=== PATIENT | female | born 1985 | race Caucasian/White ===

== ENCOUNTER 2020-09-08 21:37 | Emergency (ER) | payer OTHER ==
[~2020-09-08] VITALS: Ht 157.5 cm; Wt 113.4 kg
[2020-09-08 21:50] VITALS: BP 149/87
--- NOTE | 2020-09-08 21:53 | NUR ---
TO LOBBY A/W BED AMBULATORY
[2020-09-08] MEDS ORDERED: LIDOCAINE/EPI 1% 1:100000 20 ML VIAL INJ ONE (22:35)
--- NOTE | 2020-09-08 23:42 | NUR ---
PATIENT PRESENTS TO ED WITH LEFT FOOT PAIN C/O LACERATION . PT STATES "THE PHARMACY ANCILLARY BLADE FELL ON MY FOOT AND IT HURTS AND WAS BLEEDING" . DENIES N/V/D; SKIN IS PINK/WARM/DRY; AAOX4 WITH EVEN AND STEADY GAIT; LUNGS CLEAR BL; HR EVEN AND REGULAR; PT DENIES ANY FEVER, CP, SOB, OR COUGH AT THIS TIME; PATIENT STATES PAIN OF 7/10 AT THIS TIME; VSS; PATIENT POSITIONED FOR COMFORT; HOB ELEVATED; BEDRAILS UP X2; BED DOWN. ER MD MADE AWARE OF PT STATUS. PMH: [facility]
[2020-09-09 00:20] VITALS: BP 149/87
--- NOTE | 2020-09-09 00:20 | NUR ---
Patient discharged with v/s stable. Written and verbal after care instructions given and explained. Patient verbalized understanding. Ambulatory with steady gait. All questions addressed prior to discharge. Advised to follow up with PMD.
== END 2020-09-09 00:20 | disposition home or self-care (01) ==
LOC: MED 21:37
DX: S91.114A Laceration without foreign body of right lesser toe(s) without damage to nail, initial encounter (principal); W22.8XXA Striking against or struck by other objects, initial encounter; Y93.89 Activity, other specified; Y92.89 Other specified places as the place of occurrence of the external cause; Y99.8 Other external cause status
CPT/HCPCS: 90471; 90715; 99283; J2001